=== PATIENT | male | born 1980 | race Caucasian/White ===

== ENCOUNTER 2018-08-17 09:50 | Day surgery (SDC) | payer OTHER ==
[2018-08-17] MEDS ORDERED: BUPIVACAINE 0.5% PF 30 ML VIAL ONE (09:58)
[2018-08-17] MEDS ORDERED: LACTATED RINGERS 1,000 ML IV ONE ×4 (10:25→16:07)
--- NOTE | 2018-08-17 10:32 | ANESTHESIA ---
Pre-Anesthesia VS, & Labs - Diagnosis right pectoralis major tear - Procedure right pectoralis major repair Vital Signs: Temp Pulse Resp BP Pulse Ox 36.6 C 71 18 127/87 H 100 08/17/18 10:00 08/17/18 10:00 08/17/18 10:00 08/17/18 10:00 08/17/18 10:00 Height 6 ft Weight (kg) 72.57 kg - NPO >8 hours Last Fluid Intake: gatorade at 0800 Home Medications and Allergies Home Medications: Ambulatory Orders Multivitamin [One Daily Multivitamin] 1 each PO 08/15/18 Multivitamin [One Daily Multivitamin] 1 each PO 08/15/18 Allergies/Adverse Reactions: Allergies Allergy/AdvReac Type Severity Reaction Status Date / Time No Known Drug Allergies Allergy Verified 08/15/18 11:45 Anes History & Medical History - Anesthetic History Family history of Anesthesia Complications: Denies Family history of Malignant Hyperthermia: Denies - Medical History Cardiovascular: reports: None Pulmonary: reports: None Gastrointestinal: reports: None Urinary: reports: None Neuro: reports: None Musculoskeletal: reports: None, Other Endocrine/Autoimmune: reports: None Blood Disorders: reports: None Skin: reports: None Smoking Status: Never smoker (Quit chewing tobacco 1 month ago.) Psychosocial: reports: Alcohol (3-5 drinks per week) Exam General: Alert, Oriented x3, Cooperative, No acute distress Dental: WNL Mouth Openin Fingerbreadth Neck Mobility: Normal Mallampati classification: I Thyromental Distance: 4-6 cm Respiratory: Lungs clear, Normal breath sounds, No respiratory distress, No accessory muscle use Cardiovascular: Regular rate, Normal S1, Normal S2, No murmurs Mental/Cognitive Status: Alert/Oriented X3, Normal for patient Plan Anesthesia Type: General Consent for Procedure(s) Verified and Reviewed: Yes Code Status: Attempt Resuscitation ASA classification: 1-Healthy patient Is this case an emergency?: No
[2018-08-17] MEDS ORDERED: ceFAZolin 2 GM/50 ML 0 GM/0 ML BAG IV ONE (11:32)
[2018-08-17] MEDS ORDERED: cefTRIAXone 2 GM VIAL ONE (11:40)
[2018-08-17] MEDS ORDERED: BUPIVACAINE 0.5% PF 30 ML VIAL INFIL ONE (12:26)
[2018-08-17] MEDS ORDERED: ACETAMINOPHEN 1,000 MG/100 ML 100 ML IV ONE (14:06)
[2018-08-17] MEDS ORDERED: ONDANSETRON 4 MG/2 ML VIAL IVP ONE (14:06)
[2018-08-17] MEDS ORDERED: fentaNYL 250 MCG/5 ML VIAL IVP ONE (14:06)
[2018-08-17] MEDS ORDERED: KETOROLAC 30 MG/ML VIAL IVP ONE (14:06)
[2018-08-17] MEDS ORDERED: cefTRIAXone 2 GM VIAL IV ONE (14:06)
[2018-08-17] MEDS ORDERED: PROPOFOL 200 MG/20 ML VIAL IVP ONE (14:06)
[2018-08-17] MEDS ORDERED: ePHEDrine 50 MG/ML VIAL IVP ONE (14:06)
[2018-08-17] MEDS ORDERED: HYDROmorphone 1 MG/ML CARPUJECT ONE (16:20)
[2018-08-17] MEDS ORDERED: fentaNYL 100 MCG/2 ML VIAL ONE (16:21)
[2018-08-17] MEDS ORDERED: ONDANSETRON 4 MG/2 ML VIAL IVP PRN (16:25)
[2018-08-17] MEDS ORDERED: oxyCODONE 5 MG TABLET PO PRN (16:25)
[2018-08-17] MEDS ORDERED: ROPIVACAINE 0.5% PF 20 ML AMPULE ONE (16:53)
[2018-08-17] MEDS ORDERED: oxyCODONE 5 MG TABLET ONE (17:25)
--- NOTE | 2018-08-17 17:31 | ANESTHESIA PROCEDURE NOTE ---
Procedure: Right Supraclavicular block Consent for Procedure(s) Verified and Reviewed: Yes Height and Weight: Height 6 ft Weight (kg) 72.57 kg Vital Signs: Temp Pulse Resp BP Pulse Ox 36.2 C L 88 12 138/83 H 95 08/17/18 16:40 08/17/18 16:40 08/17/18 16:40 08/17/18 16:40 08/17/18 16:40 Allergies No Known Drug Allergies Allergy (Verified 08/15/18 11:45) ASA classification: 1-Healthy patient Is this case an emergency?: No Anes. Procedure Start Time: 16:50 Anes. Procedure Stop Time: 17:00 Procedure Notes: I discussed placing post op block with patient and surgeon prior to induction of anesthesia. Patient reported pain 6/10 in phase 2 and he did not want to go home with this level of pain. Patient was able to move hand and fingers without difficultly. Time out procedure was done and right neck was prepped with chloroprep. The right brachial plexus at the supraclavicular level was identified using ultrasound and a 22G stimiplex needle was guided toward brachial plexus. A total of 30ml 0.5% ropivicaine plus 6mg decadron was injected around nerve bundle with adequate spread noted. Patient reported good pain relief with pain 0.5/10. Reminded patient to use sling and caution as arm would be numb. and patient indicated understanding.
[2018-08-17] MEDS ORDERED: ONDANSETRON ODT 4 MG TABLET ONE (17:43)
[2018-08-17 17:56] VITALS: BP 133/81
--- NOTE | 2018-08-17 17:56 | OPERATIVE REPORT ---
Operative Report - General Procedure Date: 08/17/18 Planned Procedure: Right Pectoralis Major Repair Pre-Op Diagnosis: Complete Right Pectoralis Major Tear Procedure Performed: Right pectoralis major repair Post Op Diagnosis: Same - Procedure Note Primary Surgeon: Arvind Leon Secondary Surgeon: Quinn Flores Estimated Blood Loss (mL): 200 Complications: None - Other Other Information/Narrative: IMPLANTS: 2 mm suture tape x2 #2 FiberWire x2 POSTOPERATIVE PLAN: 0-4 weeks-Sling at all times. Pendulum exercises 5 times per day. 5-8 weeks-Gentle passive ROM 9-12 weeks - Active ROM in all planes 3-6 months - Gradual strengthening 6 months - Full activity EXAMINATION UNDER ANESTHESIA: ROM: Full Of the tendon could be felt adjacent to the superior axillary fold FINDINGS: The pectoralis major tendon was completely torn from its insertion it was identified, freed from the surrounding scar tissue, and replaced at its anatomic insertion. INDICATION FOR SURGERY: This is a 37-year-old male who tore his right pectoralis major on 17 May 2018 while doing an incline bench. He met me a few months after that and was indicated for surgery to restore strength and cosmesis. We discussed surgical and nonsurgical options. The risks, benefits, and alternatives were discussed. Risks included pain, bleeding, infection, damage to nearby structures, lack of symptom relief, implant complications, stiffness, need for further surgeries, DVT, PE, stroke, and even . He signed a written consent form. PROCEDURE IN DETAIL: The patient was met in the preoperative holding on the day of the procedure. Operative extremity was signed. Consent was verified. They desired to proceed. They were brought to the operating room and surrendered to anesthesia. Once general anesthesia was obtained they were placed in the supine position with single blanket under the scapula. A surgical timeout was held to confirm the patient procedure, identity, procedure, laterality, allergies, images, and antibiotics. All were in agreement we proceeded. A 9 cm incision was made from just distal to the coracoid to just lateral to the superior axillary crease. Hemostasis was obtained with electrocautery. Full- thickness skin flaps were created above the deltopectoral fascia. The cephalic vein was identified and I entered the fascia just medial to it. I develop the plane between the pectoralis major and the deltoid and there was significant amount of scar tissue making this dissection challenging. Branches of the cephalic vein traveling medially were identified and tied with 0 silk and then cut. There was some bleeding associated with the management of the cephalic vein branches. I developed the plane between the fascia and the pectoralis major muscle as well as the plane deep to the pectoralis major tendon and superficial to the pector edvin minor. I placed suture tape and the superior edge of the clavicular head with 4 locking bites and pulled on this for traction. I then continued to release the underside of the pectoralis major tendon with a combination of digital dissection and scissor dissection from the surrounding scar tissue and placed a FiberWire suture in a similar fashion an additional fiber tape and then finally an additional FiberWire. I had freed up the pectoralis major all the way inferior and medial and was satisfied with my release circumferentially. When I pulled on the sutures I had good excursion. The tendon measured slightly over 4 cm I then proceeded laterally and cleared the subdeltoid space and placed a retractor. I identified the long head of the biceps tendon within the bicipital groove and the remnant tissue of the pectoralis major tendon that had scarred to the underside of the deltoid. I debrided this and cleared off the bone just lateral to the long head of the biceps. I then used a 4 mm bur and made a 4.5 cm trough just lateral to the long head of the biceps. 2.5 mm drill holes were placed 1 cm lateral to the trough. I evenly spaced 5 holes. I then passed the sutures with the top and bottom holes having a single suture and the rest of the holes having 2 sutures ensuring that the matched pair would be tied over a bone tunnel. I then irrigated the wound copiously. The arm was then adducted and internally rotated and all sutures were pulled on to reduce the tendon into the trough. A freer was used to guide the leading edge of the tendon down into the trough. The tendon had been thickened in its scarred position and the entire thing was not able to go down into the trough. I then pulled to tension on the sutures and then tied them sequentially from top to bottom I externally rotated the arm following fixation and found it to be excellent. All sutures were cut and I again irrigated. The wound had no significant bleeding and was quite dry. The deltopectoral fascia was closed with 0 Vicryl interrupted. The skin was closed with 2-0 Vicryl in the dermis and a running 3-0 Monocryl in the skin. Mastisol and Steri-Strips were applied. A sterile dressing was applied. A sling was placed. The patient was awakened and transferred to the recovery room.
[2018-08-17] MEDS ORDERED: DEXAMETHASONE 4 MG/ML VIAL ONE (19:15)
== END 2018-08-17 09:51 | disposition home or self-care (01) ==
LOC: SDS 09:50
PROVIDERS: ATTEND Orthopaedic Surgery
PROC: 0LM10ZZ Reattachment of Right Shoulder Tendon, Open Approach (ICD-10-PCS; principal; 2018-08-17 11:00)
DX: S29.011A Strain of muscle and tendon of front wall of thorax, initial encounter (principal); X50.0XXA Overexertion from strenuous movement or load, initial encounter; Y93.A4 Activity, circuit training; Y99.8 Other external cause status
CPT/HCPCS: 24341; A9270; J0131; J1170; J3010; J7120; Q0162

== ENCOUNTER 2019-02-04 10:57 | Outpatient (CLI) | payer OTHER ==
--- NOTE | 2019-02-04 12:08 | CONSULTATION NOTE ---
Information from patient questionnaire entered by Abril Gutierrez. I have reviewed and concur with the information entered by Abril Gutierrez. This document represents the service I personally performed and the decisions made by me, Raul Flores MD, [facility]. - History of Present Illness Chief Complaint: Unrefreshed sleep, Snoring, Fatigue, Frequent awakenings at night The patient tells me that he normally goes to bed around 10:30 pm, and it takes him approximately 60 minutes to fall asleep. He has been told that he snores loudly and irregularly at night. He has not been observed to stop breathing in his sleep. His has to sleep in another room due to the loudness of his snoring. He can recall waking up on the average of 3-4 times during the night. Most of the time he wakes up because of snoring. He has also occasionally awakened for his choking. There is1 a lot of tossing and turning in his sleep. Generally there is no recollection of dreams. He usually wakes up at 6:00 am and does not feel refreshed. He usually does not have a morning headache. During the day he complains of feeling sleepy and fatigued. He has fallen asleep while driving and has gone out of the thee, no accident. He usually takes a nap during the day. If he naps, upon falling asleep during the day he denies having vivid dreams. There is no somniloquy (sleep talking) or somnambulism (sleep walking). He has never experienced sleep paralysis, cataplexy, or symptoms of restless leg syndrome. He reports having impaired concentration during the day. Carbon Sleepiness Scale Score: 18 - Allergies/Home Medications Allergies No Known Drug Allergies Allergy (Verified 08/15/18 11:45) Allergies and home medications reviewed: Yes - Social History The patient's occupation is active [employer] 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 Patient is and lives in [place]. Smoked in the past 12 months: No Alcohol use: Yes Amount and frequency: 2-3 drinks, 3 times a week Caffeine use: Yes Amount and frequency: 2-3 cups of coffee in the morning - Family History Family history of sleep disordered breathing: Yes Family Hx Sleep Apnea: Sibling: Sleep apnea - Treated (brother) - Review of Systems Ear/Nose/Throat: reports: dry mouth/throat Endocrine: reports: sluggishness - Physical Examination Blood Pressure: 90/50 Cuff size: regular Heart Rate: 66 O2 Saturation: 99 Height: 6 ft Weight (kg): 76.204 kg Body Mass Index: 22.8 BMI Classification: Healthy weight Neck circumference: 14.5 Mood/affect: normal HEENT: No craniofacial malformation Nostrils: patent to airflow Turbinates: normal Septum: midline Mouth and throat: narrow oropharynx (Mallampati Class II) Soft palate: long Hard palate: normal Uvula: normal Tongue: normal in size Tonsils: small Chin and jaw: normal size and position Neck: normal w/o lymphadenopathy or thyromegaly Heart: regular rate and rhythm Lungs: clear bilaterally Abdomen: soft Extremities: no edema or clubbing Neurologic: intact - Impression 1. Suspected Obstructive Sleep Apnea-Hypopnea Syndrome, as suggested by a history of loud and irregular snoring, gasping or choking in sleep, frequent awakening during the night, unrefreshed sleep, cognitive impairment, and excessive daytime sleepiness. Narrow oropharynx is a common predisposing factor for obstructive sleep apnea-hypopnea syndrome. I recommend proceeding to polysomnography to confirm the diagnosis and to assess severity. I informed the patient of what the sleep studies involve and after some discussion, obtained agreement to proceed. The pathophysiology of obstructive sleep apnea-hypopnea syndrome was discussed with the patient and health risks of cardiovascular and cerebrovascular disease if not treated. 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 Patient agreed to plan. - Plan Schedule polysomnography and return in 1-2 weeks after the study to discuss result and initiate therapy. Avoid long distance driving or driving when feeling sleepy. Avoid alcohol, sedative and muscle relaxant around bedtime. Review instructions provided by trained office staff on how to prepare for the sleep study. Return for follow-up after sleep study completed. I spent 100% of this 25 minute visit face to face with the patient with greater than 50% of this was spent time counseling the patient and coordination of care.
[2019-02-04 12:09] VITALS: BP 90/50
== END 2019-02-04 10:58 | disposition home or self-care (01) ==
LOC: SC 10:57
PROVIDERS: ATTEND Internal Medicine Pulmonary Disease
DX: R06.83 Snoring (principal); G47.8 Other sleep disorders; R41.89 Other symptoms and signs involving cognitive functions and awareness; G47.10 Hypersomnia, unspecified
CPT/HCPCS: 99203; 99212

== ENCOUNTER 2019-02-17 20:28 | Outpatient (CLI) | payer OTHER | END 2019-02-17 20:29 | disposition home or self-care (01) | LOC: SC 20:28 | PROVIDERS: ATTEND Internal Medicine Pulmonary Disease | DX: R06.83 Snoring (principal) | CPT/HCPCS: 95810 ==